=== PATIENT | female | born 1930 | race Caucasian/White ===

== ENCOUNTER 2017-04-25 21:03 | Emergency (ER) | payer MEDICARE, OTHER, MEDICAID ==
[2017-04-25 21:20] VITALS: BP 133/60
--- NOTE | 2017-04-25 21:34 | EDM.PDOC ---
ED HPI GENERAL MEDICAL PROBLEM - General Chief Complaint: Laceration Stated Complaint: head laceration d/t fall Time Seen by Provider: 04/25/17 21:20 Source of Information: Reports: EMS, Longterm Records History Limitations: Reports: Altered Mental Status, Other (Patient has history of Parkinson's) - History of Present Illness INITIAL COMMENTS - FREE TEXT/NARRATIVE: Patient is a 87-year-old with history of advanced Parkinson's disease she slipped and fell hitting her left eye causing a laceration on her upper eyelid approximately 2 cm this is very superficial and by the time that she came in the bleeding was controlled we went ahead and cleaned it and applied Dermabond Right Leg Pain Score (Numeric/FACES): 2 - Related Data Allergies Allergy/AdvReac Type Severity Reaction Status Date / Time alendronate sodium Allergy Indigestion Verified 11/28/15 22:26 [From Fosamax] iodine Allergy unknown Verified 11/28/15 22:26 NSAIDS (Non-Steroidal Allergy unknown Verified 11/28/15 22:26 Anti-Inflamma Penicillins Allergy unknown Verified 11/28/15 22:26 Sulfa (Sulfonamide Allergy unknown Verified 11/28/15 22:26 Antibiotics) tetanus and diphtheria Allergy unknown Verified 11/28/15 22:26 toxoids [Tetanus&Diphtheria Toxoid] Home Meds: Home Meds Acetaminophen [Tylenol] 650 mg PO Q6HR PRN 04/15/14 [History] Cholecalciferol (Vitamin D3) [Vitamin D3] 400 units PO DAILY 04/15/14 [History] Citalopram Hydrobromide [Celexa] 20 mg PO DAILY 04/15/14 [History] Famotidine [Pepcid] 20 mg PO DAILY 04/15/14 [History] Flaxseed Oil [Flaxseed] 1 tbsp PO DAILY 04/15/14 [History] Levothyroxine [Synthroid] 50 mcg PO 0730 04/15/14 [History] Nitroglycerin [Nitrostat] 0.4 mg SL ASDIRECTED PRN 04/15/14 [History] Simvastatin [Zocor] 20 mg PO BEDTIME 04/15/14 [History] Carbidopa/Levodopa [Sinemet 25-100 mg] 25 - 100 mg PO BID 04/26/15 [History] Albuterol/Ipratropium [DuoNeb 3.0-0.5 MG/3 ML] 3 ml NEB Q4HRRT PRN 11/28/15 [ History] Calcium Carb/Vitamin D3/Vit K1 [Viactiv Soft Chew] 1 each PO BID 11/28/15 [ History] LORazepam 0.25 mg PO BEDTIME 11/28/15 [History] predniSONE [Prednisone] 5 mg PO DAILY 11/28/15 [History] Past Medical History HEENT History: Reports: Hard of Hearing Cardiovascular History: Reports: Blood Clots/VTE/DVT Other Cardiovascular History: Diastolic dysfunction Other Respiratory History: Restless leg syndrome Other Genitourinary History: Right renal cyst Neurological History: Reports: Parkinson's Other Neuro History: Chronic fatigue, Restless leg syndrome - Past Surgical History Other Female Surgeries/Procedures: Transurethral resection of bladder tumor Social & Family History - Tobacco Use Smoking Status *Q: Never Smoker Second Hand Smoke Exposure: No - Alcohol Use Days Per Week of Alcohol Use: 0 - Recreational Drug Use Recreational Drug Use: No Drug Use in Last 12 Months: No Recreational Drug Last Use: 2-3 cups of coffee 2 times per week - Living Situation & Occupation Living situation: Reports: with Family, Extended Care Facility Occupation: Retired ED ROS GENERAL - Review of Systems Review Of Systems: See Below Constitutional: Reports: Weight Loss HEENT: Reports: No Symptoms, Other (Laceration left upper eyelid outer aspect 2 cm) Respiratory: Reports: No Symptoms. Denies: Shortness of Breath Cardiovascular: Reports: No Symptoms Endocrine: Reports: No Symptoms GI/Abdominal: Reports: No Symptoms : Reports: No Symptoms Musculoskeletal: Reports: No Symptoms Skin: Reports: Other (Laceration left upper eyelid 2 cm) Neurological: Reports: No Symptoms Psychiatric: Reports: No Symptoms ED EXAM, SKIN/RASH Exam: See Below Exam Limited By: Other (History of Parkinson's with dementia) General Appearance: Alert, Other (Laceration left upper eyelid other aspect) Ears: Normal External Exam, Normal Canal, Hearing Grossly Normal, Normal TMs Nose: Normal Inspection, Normal Mucosa, No Blood Throat/Mouth: Normal Inspection, Normal Lips, Normal Teeth, Normal Gums, Normal Oropharynx, Normal Voice, No Airway Compromise Neck: Normal Inspection, Supple, Non-Tender, Full Range of Motion Respiratory/Chest: Rales (Dry Rales) Cardiovascular: Normal Peripheral Pulses, Regular Rate, Rhythm, No Edema, No Gallop, No JVD, No Murmur, No Rub GI/Abdominal: Normal Bowel Sounds, Soft, Non-Tender, No Organomegaly, No Distention, No Abnormal Bruit, No Mass Back Exam: Normal Inspection, Full Range of Motion, NT Extremities: Normal Inspection, Normal Range of Motion, Non-Tender, No Pedal Edema, Normal Capillary Refill Neurological: Alert, Oriented, CN II-XII Intact, Normal Cognition, Normal Gait, Normal Reflexes, No Motor/Sensory Deficits Psychiatric: Normal Affect, Normal Mood Skin: Warm, Dry, Wound/Incision (Laceration left eye brow 2 cm outer aspect) Location, Skin: Head Lymphatic: No Adenopathy ED SKIN PROCEDURES - Laceration/Wound Repair Left Upper Brow Appearance: Linear Closed with: Dermabond Course - Vital Signs Last Recorded V/S: Last Vital Signs Temp 98.1 F 04/25/17 21:18 Pulse 93 04/25/17 21:18 Resp 16 04/25/17 21:18 BP 133/60 04/25/17 21:18 Pulse Ox 93 L 04/25/17 21:18 Departure - Departure Time of Disposition: 21:39 Disposition: DC/Tfer to SNF 03 Clinical Impression: Laceration of left eyebrow without complication - Discharge Information Referrals: Sheets-Kathryn Hinds MD [Primary Care Provider] - Care Plan Goals: Was Dermabond patient will be released back to the longterm
== END 2017-04-25 22:10 ==
LOC: LL.ED 21:03
DX: S01.112A Laceration without foreign body of left eyelid and periocular area, initial encounter (principal); Z88.8 Allergy status to other drugs, medicaments and biological substances; Z88.0 Allergy status to penicillin; Z88.2 Allergy status to sulfonamides; Z79.899 Other long term (current) drug therapy; W18.00XA Striking against unspecified object with subsequent fall, initial encounter
CPT/HCPCS: 12011; 99282; 99284